=== PATIENT | female | born 1995 | race Caucasian/White ===

== ENCOUNTER 2018-01-26 05:59 | Emergency (ER) | payer OTHER ==
[~2018-01-26] VITALS: Ht 162.6 cm; Wt 74.4 kg
[2018-01-26 07:23] LABS: HEMATOCRIT 44.1 % (37.0-47.0); HEMOGLOBIN 15.1 gm/dL (12.0-15.0); MCH 31.6 pg (26.0-34.0); MCHC 34.3 g/dL (28.0-37.0); MCV 91.9 fL (80.0-100.0); MPV 8.1 fl. (7.2-11.1); NUCLEATED RBCS 0 /100WBC; PLATELET COUNT* 325 thou/uL (150-400); RDW-CV 12.2 % (10.5-14.5); WBC 23.3 thou/uL (4.0-11.0)
[2018-01-26 07:35] LABS: PROTIME 9.8 Seconds (9.20-11.50)
[2018-01-26 07:36] LABS: CALCIUM 8.6 mg/dL (8.5-10.1); CREATININE 0.7 mg/dL (0.6-1.3); POTASSIUM 3.3 mmol/L (3.5-5.1)
[2018-01-26 07:40] LABS: ALBUMIN 4.2 g/dL (3.4-5.0); TOTAL BILIRUBIN 0.2 mg/dL (<0.1-1.0); TOTAL PROTEIN 8.4 g/dL (6.4-8.2)
[2018-01-26 08:08] LABS: ABSOLUTE LYMPHOCYTES 0.2 thou/uL (0.8-5.3); ABSOLUTE MONOCYTES 0.7 thou/uL (0.0-1.2); ABSOLUTE NEUTROPHILS 22.4 thou/uL (1.6-8.1); ANISOCYTOSIS 1+; PLATELET ESTIMATE ADEQUATE; POIKILOCYTOSIS 1+
[2018-01-26 08:22] LABS: SGOT 21.6 U/L (15-37)
[2018-01-26] MEDS ORDERED: IBUPROFEN 800800 MG PO (08:49)
[2018-01-26] MEDS ORDERED: HYDROCODON-ACE1 EAC7 PO (08:49)
[2018-01-26 10:29] VITALS: BP 118/71
== END 2018-01-26 10:29 | disposition home or self-care (01) ==
LOC: M.ERS 05:59
PROVIDERS: Emergency Medicine
DX: S43.491A Other sprain of right shoulder joint, initial encounter (principal); S80.02XA Contusion of left knee, initial encounter; S00.83XA Contusion of other part of head, initial encounter; S80.211A Abrasion, right knee, initial encounter; Y08.89XA Assault by other specified means, initial encounter; Y93.89 Activity, other specified; Y92.89 Other specified places as the place of occurrence of the external cause; Y99.8 Other external cause status